=== PATIENT | female | born 1950 | race Caucasian/White ===

== ENCOUNTER → 2018-03-12 11:07 | Outpatient (CLI) | payer MEDICARE, OTHER, SELFPAY ==
--- NOTE | 2018-03-12 11:12 | DI.MRI.S_ITS ---
PROCEDURE: MR ANKLE RT WO CON INDICATIONS: Right ankle pain post trip TECHNIQUE: Noncontrast sagittal T1 spin echo and T2 fast spin echo with fat saturation, axial proton density fast spin echo and T2 fast spin echo with fat saturation, coronal T1 spin echo and T2 fast spin echo with fat saturation through the ankle/hindfoot. COMPARISON: [facility], MR, MR ANKLE RIGHT WITHOUT CONTRAST, 12/04/2017, 13:04. FINDINGS: Image quality: Excellent. Bones and joints: No bone marrow contusions or fractures. No hindfoot coalitions. No osteochondral injuries of the talar dome. Well-defined plantar calcaneal enthesophyte is seen. Small amount of fluid within tibiotalar joint and subtalar joint is seen. No gross loose body. Medial structures: The posterior tibialis, flexor digitorum longus, and flexor hallucis longus tendons are intact. The posterior tibial neurovascular bundle appears normal within the tarsal tunnel, without extrinsic mass effect. There is suggestion of sprain involving the deep fibers of deltoid ligament. Superficial fibers of deltoid ligament is intact. Attenuated appearance of spring ligament complex distally is noted suggestive of low grade ligament sprain. Lateral structures: The anterior talofibular, calcaneofibular, and posterior talofibular ligaments appear intact. More superiorly, the anterior and posterior tibiofibular ligaments appear intact, as is the intermalleolar ligament. The tibiofibular syndesmosis is normal in width at 2 mm or less. Very low-grade tenosynovitis is seen involving the peroneus tendon at the level of calcaneus. No evidence of peroneus tendon tear. Adjacent bony peroneal tubercle and retrotrochlear prominence are normal in size. The sinus tarsi demonstrates normal fatty signal, without edema, fibrosis, or cyst formation. Visualized sinus tarsi components (cervical ligament, interosseous talocalcaneal ligament, roots of the inferior extensor retinaculum) appear normal. The calcaneonavicular and calcaneocuboid components of the bifurcate ligament appear intact. The dorsal calcaneocuboid ligament appears intact. Anterior structures: The tibialis anterior, extensor hallucis longus, and extensor digitorum longus tendons appear intact. The dorsal talonavicular ligament appears intact. Posterior and plantar structures: Achilles tendon is intact. Medial and lateral bands of the plantar fascia are of normal thickness. No abductor digiti quinti muscle atrophy to suggest Andres neuropathy. IMPRESSION: 1. Low-grade tenosynovitis involving mid to distal peroneus tendons at the level of calcaneus. No other ankle tendons tear or tendinosis. 2. Suggestion of sprain involving deep fibers of deltoid ligament as well as distal spring ligament complex. No full-thickness ligamentous rupture. Lateral ankle ligaments are intact. 3. Well-defined plantar in enthesophyte. No marrow edema. No fracture or dislocation. Trace amount of joint effusion. No gross loose body. Dictated by: Paresh Pina M.D. on 03/12/2018 at 13:29 Approved by: Paresh Pina M.D. on 03/12/2018 at 13:36
== END ==
PROVIDERS: Visit Provider Podiatrist
DX: M25.571 Pain in right ankle and joints of right foot (principal); M65.871 Other synovitis and tenosynovitis, right ankle and foot
CPT/HCPCS: 73721

== ENCOUNTER → 2018-06-19 09:29 | Outpatient (CLI) | payer MEDICARE, OTHER, SELFPAY ==
--- NOTE | 2018-06-19 | DI.MRI.S_ITS ---
PROCEDURE: MR ANKLE RT WO CON INDICATIONS: Nondisplaced fracture of neck of right talus TECHNIQUE: Noncontrast sagittal T1 spin echo and T2 fast spin echo with fat saturation, axial proton density fast spin echo and T2 fast spin echo with fat saturation, coronal T1 spin echo and T2 fast spin echo with fat saturation through the ankle/hindfoot. COMPARISON: [facility], MR, MR ANKLE RT WO CON, 03/12/2018, 11:28. FINDINGS: Image quality: Excellent. Bones and joints: No bone marrow contusions or fractures. No hindfoot coalitions. No osteochondral injuries of the talar dome. No pathologic joint effusions. There is improved subcutaneous edema overlying the lateral malleolus since prior study. Medial structures: The posterior tibialis, flexor digitorum longus, and flexor hallucis longus tendons are intact. The posterior tibial neurovascular bundle appears normal within the tarsal tunnel, without extrinsic mass effect. There is mild signal change with low-grade T2 hyperintense appearance of the deltoid ligament complex again suspicious for age-indeterminate sprain. The appearance is unchanged since the prior study.The spring ligament is not well-visualized and also could represent chronic sprain. Lateral structures: The anterior talofibular, calcaneofibular, and posterior talofibular ligaments appear intact. More superiorly, the anterior and posterior tibiofibular ligaments appear intact, as is the intermalleolar ligament. The tibiofibular syndesmosis is normal in width at 2 mm or less. The peroneus longus and brevis tendons demonstrate normal location and morphology. There is peroneal tenosynovitis, grossly unchanged since prior study. Adjacent bony peroneal tubercle and retrotrochlear prominence are normal in size. The sinus tarsi demonstrates normal fatty signal, without edema, fibrosis, or cyst formation. Visualized sinus tarsi components (cervical ligament, interosseous talocalcaneal ligament, roots of the inferior extensor retinaculum) appear normal. The calcaneonavicular and calcaneocuboid components of the bifurcate ligament appear intact. The dorsal calcaneocuboid ligament appears intact. Anterior structures: The tibialis anterior, extensor hallucis longus, and extensor digitorum longus tendons appear intact. The dorsal talonavicular ligament appears intact. Posterior and plantar structures: Achilles tendon is intact. Chronic appearing mild medial band plantar fasciitis with overall low signal appearance. No abductor digiti quinti muscle atrophy to suggest Andres neuropathy. IMPRESSION: Mild distal peroneal tenosynovitis grossly unchanged since the prior study. Overlying and nearby subcutaneous soft tissue swelling has resolved since 03/12/18. Probably chronic sprain of the deep fibers of the deltoid ligament complex, and possibly involving the spring ligament as before. No interval change. Chronic appearing mild medial band plantar fasciitis. The appearance is unchanged. Dictated by: Steven Bates M.D. on 06/19/2018 at 11:29 Approved by: Steven Bates M.D. on 06/19/2018 at 11:38
== END ==
PROVIDERS: Visit Provider Podiatrist
DX: S92.114D Nondisplaced fracture of neck of right talus, subsequent encounter for fracture with routine healing (principal); M65.871 Other synovitis and tenosynovitis, right ankle and foot; M72.2 Plantar fascial fibromatosis
CPT/HCPCS: 73721

== ENCOUNTER → 2018-09-27 07:55 | Outpatient (CLI) | payer MEDICARE, OTHER, SELFPAY ==
[2018-09-27 09:43] LABS: Cholesterol 226 mg/dL (140-199); HDL Cholesterol 63 mg/dL (40-60); LDL Cholesterol Calculated 125 mg/dL (<100); Triglycerides 189 mg/dL (35-150)
== END ==
DX: E78.2 Mixed hyperlipidemia (principal)
CPT/HCPCS: 36415; 80061

== ENCOUNTER → 2019-04-29 11:13 | Outpatient (CLI) | payer MEDICARE, OTHER, SELFPAY ==
--- NOTE | 2019-04-29 | DI.MRI.S_ITS ---
PROCEDURE: MR CERVICAL SPINE WO CON INDICATIONS: Cervicalgia TECHNIQUE: Noncontrast sagittal T1 spin echo and T2 fast spin echo, sagittal STIR, foraminal oblique sagittal T2 fast spin echo, and axial gradient echo or T2 fast spin echo through the cervical spine. COMPARISON: None. FINDINGS: Image quality: Excellent. Alignment and Curvature: Straightening of the normal lordotic curvature. Multilevel degenerative endplate sclerosis and spurring. Diffuse facet arthropathy. Grade 1 anterolisthesis of C4 on C5. Bone Marrow: Prominent basilar venous plexus incidentally noted at multiple levels. Spinal Cord: Visualized spinal cord has normal size and signal. No cerebellar tonsillar herniation. Paraspinous Soft Tissues: No paravertebral masses. Prevertebral soft tissues are normal in thickness. C2-C3: Normal appearance. C3-C4: Mild central canal narrowing. Severe bilateral foraminal stenosis with nerve root compression. C4-C5: Mild-moderate central canal narrowing with effacement of the anterior thecal sac. Mild bilateral foraminal stenoses. C5-C6: Mild-moderate central canal narrowing. Moderate right foraminal stenosis with nerve root compression. Mild left foraminal narrowing C6-C7: Mild central canal narrowing. Mild right foraminal stenosis. No definite left foraminal narrowing C7-T1: Normal appearance. IMPRESSION: Multilevel cervical spondylosis with severe bilateral foraminal stenoses at C3-C4 Moderate right C5-C6 foraminal narrowing Straightening of the normal lordotic curvature. Grade 1 anterolisthesis of C4 on C5 Dictated by: Steven Bates M.D. on 04/29/2019 at 12:43 Approved by: Steven Bates M.D. on 04/29/2019 at 12:48
== END ==
PROVIDERS: PCP Internal Medicine; Visit Provider Internal Medicine
DX: M54.2 Cervicalgia (principal); M48.02 Spinal stenosis, cervical region; M43.12 Spondylolisthesis, cervical region; M47.812 Spondylosis without myelopathy or radiculopathy, cervical region
CPT/HCPCS: 72141

== ENCOUNTER → 2019-10-08 06:57 | Outpatient (CLI) | payer MEDICARE, OTHER, SELFPAY ==
[2019-10-08 08:52] LABS: Alanine Aminotransferase 30 IU/L (<35); Albumin 4.3 g/dL (3.5-5.0); Albumin Globulin Ratio 1.5 (1.0-2.8); Alkaline Phosphatase 76 U/L (38-126); Aspartate Aminotransferase 41 IU/L (14-36); BUN Creatinine Ratio 22.5 (6-22); Bilirubin Total 0.6 mg/dL (0.2-1.3); Blood Urea Nitrogen 18 mg/dL (7-17); Calcium 9.8 mg/dL (8.4-10.2); Carbon Dioxide 30 mmol/L (22-32); Chloride 105 mmol/L (98-107); Cholesterol 227 mg/dL (140-199); Estimated Glomerular Filt Rate > 60.0 mL/min (>60); Globulin 2.8 g/dL (1.7-4.1); Glucose 89 mg/dL (80-110); HDL Cholesterol 57 mg/dL (40-60); HEMOLYSIS < 15 (0-50); LDL Cholesterol Calculated 135 mg/dL (<100); Potassium 4.5 mmol/L (3.4-5.1); Sodium 141 mmol/L (137-145); Total Protein 7.1 g/dL (6.3-8.2); Triglycerides 174 mg/dL (35-150)
[2019-10-08 08:59] LABS: Free T4, Direct Thyroxine 0.94 ng/dL (0.78-2.19)
[2019-10-08 09:13] LABS: Thyroid Stimulating Hormone 8.48 uIU/mL (0.47-4.68)
== END ==
PROVIDERS: PCP Internal Medicine; Referring Provider Internal Medicine; Visit Provider Internal Medicine
DX: E03.9 Hypothyroidism, unspecified (principal); E78.2 Mixed hyperlipidemia; R73.01 Impaired fasting glucose
CPT/HCPCS: 36415; 80053; 80061; 83036; 84439; 84443

== ENCOUNTER → 2021-09-06 10:00 | Outpatient (CLI) | payer MEDICARE, OTHER, SELFPAY ==
[2021-09-06 13:07] LABS: COVID-19 CEPHEID PCR (VTM/NP) Negative (Negative)
== END ==
PROVIDERS: PCP Internal Medicine; Visit Provider Family Medicine Sleep Medicine
DX: Z20.822 Contact with and (suspected) exposure to COVID-19 (principal)
CPT/HCPCS: C9803; U0003; U0005

== ENCOUNTER → 2022-08-25 08:37 | Outpatient (CLI) | payer MEDICARE, OTHER, SELFPAY ==
--- NOTE | 2022-08-25 | DI.MRI.S_ITS ---
PROCEDURE: MRFOOT LT WO CON INDICATIONS: Stress fracture, left foot TECHNIQUE: Noncontrast sagittal T1 spin echo and T2 fast spin echo with fat saturation, long-axis T1 spin echo and T2 fast spin echo with fat saturation, short-axis T1 spin echo and T2 fast spin echo with fat saturation through the forefoot. COMPARISON: [facility] [place], CR, XR FOOT 3 VIEWS WEIGHT BEARING LEFT, 08/17/2022, 11:17. FINDINGS: Image quality: Excellent. Bones and joints: There is extensive marrow edema involving 2nd metatarsal shaft with a subacute appearing fracture involving distal 2nd metatarsal shaft with surrounding soft tissue edema and adjacent callus formation at fracture site. No significant displacement is seen at fracture site. No other area of abnormal marrow signal. 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 Soft tissues: The visualized plantar foot muscles demonstrate normal signal and bulk. Visualized flexor and extensor tendons appear intact, without tenosynovitis. The distal insertions of the peroneus brevis and longus tendons appear intact. The principal Lisfranc ligament appears intact. No soft tissue ganglion cysts or bursal fluid collections. Sagittal images demonstrate no evidence for plantar plate tears. IMPRESSION: 1. Subacute appearing stress fracture involving distal shaft of 2nd metatarsal bone with extensive marrow edema and surrounding soft tissue edema. No other fracture or dislocation. [id number] midfoot and forefoot joint osteoarthritis. 2. Extensor and flexor tendons are intact. Lisfranc ligament and joint is intact. No gross plantar plate tear. Dictated by: Paresh Pina M.D. on 08/25/2022 at 10:37 Approved by: Paresh Pina M.D. on 08/25/2022 at 10:39
== END ==
PROVIDERS: PCP Internal Medicine; Referring Provider Orthopaedic Surgery Foot and Ankle Surgery; Visit Provider Orthopaedic Surgery Foot and Ankle Surgery
DX: M84.375A Stress fracture, left foot, initial encounter for fracture (principal); M19.072 Primary osteoarthritis, left ankle and foot
CPT/HCPCS: 73718

== ENCOUNTER → 2023-11-22 11:42 | Outpatient (CLI) | payer MEDICARE, OTHER, SELFPAY ==
--- NOTE | 2023-11-22 11:45 | DI.MRI.S_ITS ---
PROCEDURE: MR ELBOW RT WO CON INDICATIONS: RIGHT ELBOW PAIN TECHNIQUE: Noncontrast coronal proton density fast spin echo and T2 fast spin echo with fat saturation, axial and sagittal T1 spin echo and T2 fast spin echo with fat saturation through the elbow. COMPARISON: [facility] [place], CR, XR ELBOW 1 OR 2 VIEWS RIGHT, 11/20/2023, 8:48. FINDINGS: Image quality: Excellent. Lateral structures: The lateral ulnar collateral ligament and radial collateral ligament both appear intact. Mild tendinosis of the common extensor tendon origin with low-grade tear. Medial structures: The ulnar collateral ligament appears intact. Mild tendinosis of the common flexor tendon origin with low-grade tear. The ulnar nerve appears normal in size and signal within the cubital tunnel. Anterior structures: The biceps and brachialis tendons both appear intact as they insert onto the proximal radius and ulna, respectively. No bicipitoradial bursal fluid. The median and radial neurovascular bundles appear normal; no focal muscle atrophy to suggest nerve impingement. Posterior structures: The conjoint triceps tendon from the long and lateral heads appears intact. The medial head of the triceps tendon also appears normal, with direct muscle insertion onto the olecranon. No olecranon bursal fluid. Bone and cartilage: Mild marrow edema of the capitellum without fracture line, representing a marrow contusion. There is a minimally impacted fracture of the radial head with marked marrow edema. Moderate elbow effusion. Subcutaneous fat edema posterior to the olecranon. IMPRESSION: 1. Minimally impacted fracture of the radial head. Marked marrow contusion of the capitellum. 2. Mild tendinosis and low-grade tear of the common extensor and flexor tendon origin. 3. Moderate elbow effusion. Dictated by: Rosemary Black M.D. on 11/23/2023 at 12:53 Approved by: Rosemary Black M.D. on 11/23/2023 at 13:00
== END ==
PROVIDERS: PCP Internal Medicine; Referring Provider Physician Assistant; Visit Provider Physician Assistant
DX: S52.124A Nondisplaced fracture of head of right radius, initial encounter for closed fracture (principal); S56.511A Strain of other extensor muscle, fascia and tendon at forearm level, right arm, initial encounter; S56.211A Strain of other flexor muscle, fascia and tendon at forearm level, right arm, initial encounter; M25.521 Pain in right elbow
CPT/HCPCS: 73221

== ENCOUNTER → 2024-01-01 12:19 | Outpatient (CLI) | payer MEDICARE, OTHER, SELFPAY ==
--- NOTE | 2024-01-01 12:20 | DI.RAD.S_ITS ---
PROCEDURE: XR DEXA AXIAL SKELETON INDICATIONS: SCREENING FOR OSTEOPOROSIS COMPARISON: None. FINDINGS: Lumbar Spine: Bone mineral density 0.963 g/cm2, T score -0.5. Left Hip: Bone mineral density 0.795 g/cm2, T score -1.2. Left Femoral Neck: Bone mineral density 0.637 g/cm2, T score -1.9. Right Hip: Bone mineral density 0.805 g/cm2, T score -1.1. Right Femoral Neck: Bone mineral density 0.684 g/cm2, T score -1.5. Fracture Risk Calculation (when applicable): 10-year fracture risk of a major osteoporotic fracture 12% and of a hip fracture 2.3%. (T score greater or equal to -1.0 to: NORMAL) (T score from -1.1 to -2.4: OSTEOPENIA) (T score less than or equal to -2.5: OSTEOPOROSIS) IMPRESSION: By WHO criteria, patient has osteopenia. Follow-up guidelines as follows: Osteoporosis: Consider a repeat DEXA and Vertebral Fracture Assessment (VFA) exam in 2 years or sooner if medically necessary, to reassess this patient's status. Osteopenia: Consider a repeat DEXA in 2-3 years to reassess this patient's status, or if there is a new clinical indication. Normal: Consider a repeat DEXA in 5 years or sooner, or if there is a new clinical indication. All treatment decisions require clinical judgment and consideration of individual patient factors, including patient preferences, comorbidities, previous drug use, risk factors not captured in the FRAX model (e.g., frailty, falls, vitamin D deficiency, increased bone turnover, interval significant decline in bone density ) and possible under- or over-estimation of fracture risk by FRAX. In addition, the NOF Guide recommends that FDA-approved medical therapies be considered in postmenopausal women and men age >= 50 years with a: * Hip or vertebral (clinical or morphometric) fracture * T-score of <=-2.5 at the spine or hip * Ten-year fracture probability by FRAX of >= 3% for hip fracture or >=20% for major osteoporotic fracture. People with diagnosed cases of osteoporosis or at high risk for fracture should have regular bone mineral density tests. For patients eligible for Medicare, routine testing is allowed once every 2 years. The testing frequency can be increased to one year for patients who have rapidly progressing disease, those who are receiving or discontinuing medical therapy to restore bone mass, or have additional risk factors. Approved by: Agustin Perez M.D. on 01/01/2024 at 20:52
== END ==
PROVIDERS: PCP Internal Medicine; Referring Provider Internal Medicine; Visit Provider Internal Medicine
DX: Z13.820 Encounter for screening for osteoporosis; S52.124D Nondisplaced fracture of head of right radius, subsequent encounter for closed fracture with routine healing; M85.89 Other specified disorders of bone density and structure, multiple sites
CPT/HCPCS: 77080

== ENCOUNTER → 2024-10-24 08:34 | Outpatient (CLI) | payer MEDICARE, OTHER, SELFPAY ==
--- NOTE | 2024-10-24 08:36 | DI.MRI.S_ITS ---
PROCEDURE: MR WRIST LT WO CON INDICATIONS: SUBLUXATION OF LT WRIST TECHNIQUE: Noncontrast coronal proton density fast spin echo and T2 fast spin echo with fat saturation; coronal 3-D gradient echo, axial T1 spin echo and T2 fast spin echo with fat saturation, sagittal T1 spin echo through the wrist. COMPARISON: None. FINDINGS: Image quality: Excellent. Bones and cartilage: The carpal bones are normally aligned. No bone marrow contusions or fractures. No evidence for avascular necrosis. Mild osteoarthritic changes are noted throughout wrist joints. Carpal ligaments: The scapholunate and lunotriquetral ligaments appear intact. In the absence of intra-articular contrast, the extrinsic carpal ligaments are not well identified. On sagittal images, the pisohamate ligament appears intact. Triangular fibrocartilage complex: signal abnormality involving The triangular fibrocartilage near its ulnar insertion concerning for focal TFC tear in this region. The extensor carpi ulnaris tendon is mildly thickened at the level of ulnar styloid. Tendons and soft tissues: The carpal tunnel structures appear normal, including the median nerve. The ulnar nerve appears normal within Guyon's canal. All six extensor tendon compartments demonstrate normal morphology, without pathologic tendon sheath fluid. No soft tissue ganglion cysts. IMPRESSION: 1. Mild wrist joint osteoarthritis. No fracture or dislocation. No evidence of avascular necrosis. 2. Scapholunate and lunotriquetral ligaments are intact. 3. Finding is concerning for focal TFC perforation near its ulnar insertion. 4. Mild tendinosis involving right extensor carpi ulnaris tendon at the level of ulnar styloid. Rest of the extensor and flexor tendons are intact. Dictated by: Paresh Pina M.D. on 10/24/2024 at 14:28 Approved by: Paresh Pina M.D. on 10/24/2024 at 14:30
== END ==
PROVIDERS: PCP Internal Medicine; Referring Provider Orthopaedic Surgery; Visit Provider Orthopaedic Surgery
DX: S63.092A Other subluxation of left wrist and hand, initial encounter (principal); M19.032 Primary osteoarthritis, left wrist
CPT/HCPCS: 73221